=== PATIENT | male | born 1995 | race Asian ===

== ENCOUNTER 2017-06-09 21:48 | Emergency (ER) | payer OTHER ==
--- NOTE | 2017-06-09 22:36 | EDPHY ---
H & P Stated Complaint: N/v, headache HPI/ROS: HPI CHIEF COMPLAINT: Headache, intermittent nausea with 2 episodes of vomiting. HISTORY OF PRESENT ILLNESS: Patient very pleasant 21-year-old male he is a [employer] student, he denies having any significant medical history presents emergency room with a headache. He describes the headache as throbbing in nature bitemporal. He denies any visual disturbance. Denies photophobia phonophobia. Does report that he gets a headache usually once a month. It is usually when he wakes up in the morning he gets a bitemporal headache. He denies any neck pain or stiff neck. Denies being recently sick denies fever, denies meningeal signs. He does report over the last 5-6 days he has had this headache constantly every time he wakes up bilateral temporal region. He has had 2 episodes of vomiting with it. Nonprojectile. Decided come to the emergency room tonight as the headache has been present for 5-6 days which is unusual for him. Usually has it for few days once or twice a month. Patient reports to me he has had headaches for years. However has never had any imaging. Does not take any maintenance medication. Past Medical History: Denies significant medical history Past Surgical History: Denies significant surgical history Social History: Smokes tobacco daily half pack per day. Denies alcohol or illicit drugs. Family History: Noncontributory ROS REVIEW OF SYSTEMS: A comprehensive 10 point review of systems is otherwise negative aside from elements mentioned in the history of present illness. Exam Constitutional appears well nontoxic no acute distress, triage nursing summary reviewed, vital signs reviewed, awake/alert. Eyes normal conjunctivae and sclera, EOMI, PERRLA. HENT normal inspection, atraumatic, moist mucus membranes, no epistaxis, neck supple/ no meningismus, no raccoon eyes. Respiratory clear to auscultation bilaterally, normal breath sounds, no respiratory distress, no wheezing. Cardiovascular rate normal, regular rhythm, no murmur, no edema, distal pulses normal. Gastrointestinal soft, non-tender, no rebound, no guarding, normal bowel sounds, no distension, no pulsatile mass. Genitourinary no CVA tenderness. Musculoskeletal no midline vertebral tenderness, full range of motion, no calf swelling, no tenderness of extremities, no meningismus, good pulses, neurovascularly intact. Skin pink, warm, & dry, no rash, skin atraumatic. Neurologic nonfocal neurological exam, no meningeal signs, no stiff neck, awake, alert and oriented x 3, AAOx3, moves all 4 extremities equally, motor intact, sensory intact, CN II-XII intact, normal cerebellar, normal vision, normal speech. Psychiatric normal mood/affect. Heme/Lymph/Immune no lymphadenopathy. Differential Diagnosis: Includes but is not limited to and in no particular order: 10 to headache, cluster headache, migraine headache, intracranial bleed , meningitis, space-occupying intracranial lesion Medical Decision Making: Plan for this patient ibuprofen 800 mg for pain control, his neurological exam is unremarkable he has no meningeal signs. Will perform a CT scan head without contrast to make sure he does not have a space- occupying lesion. The patient has never had imaging of his head. Re-evaluation: CT head without contrast: Negative for acute intracranial occupying lesion. Called to me by Dr. Guillen [id number]: Re-evaluation at this time. Patient resting comfortably. Headache is resolved after [address] scan head does not show any acute evidence of bleed, tumor. He appears well. He has a normal neurological exam. There is no focal weakness. There is no meningeal signs. He otherwise appears well. Highly doubt meningitis. I do not feel the patient needs MR imaging or lumbar puncture. I do feel that he can go home. For set prescription provided. Return precautions discussed with him. Source: Patient - Personal History Current Tetanus Diphtheria and Acellular Pertussis (TDAP): Unsure - Medical/Surgical History Hx Asthma: No Hx Chronic Respiratory Disease: No Hx Diabetes: No Hx Cardiac Disease: No Hx Renal Disease: No Hx Cirrhosis: No Hx Alcoholism: No Hx HIV/AIDS: No Hx Splenectomy or Spleen Trauma: No Other PMH: denies - Social History Smoking Status: Light smoker Constitutional: Initial Vital Signs Temperature (C) 37.0 C 06/09/17 21:59 Heart Rate 67 06/09/17 21:59 Respiratory Rate 18 06/09/17 21:59 Blood Pressure 117/45 L 06/09/17 21:59 O2 Sat (%) 97 06/09/17 21:59 O2 Delivery Mode Room Air Allergies/Adverse Reactions: No Known Allergies Allergy (Unverified 06/09/17 21:58) Home Medications: Medication Instructions Recorded Acet/Caffeine/Buta Fioricet 1 each PO Q6 #20 tab 06/09/17 [Fioricet] Medical Decision Making - Diagnostics Imaging Results: Imaging Impressions Head CT 06/09/17 22:43 Impression: Normal brain. No intracranial hemorrhage or mass. Findings discussed with Emergency Department physician, Reyes Strange MD at 06/09/2017 23:05. - Data Points Medications Given: Discontinued Medications Ibuprofen (Motrin) 800 mg PO EDNOW ONE Stop: 06/09/17 22:44 Last Admin: 06/09/17 22:51 Dose: 800 mg Departure - Departure Disposition: Home, Routine, Self-Care Clinical Impression: Headache Qualifiers: Headache type: tension-type Headache chronicity pattern: acute headache Intractability: intractable Qualified Code(s): G44.201 - Tension-type headache, unspecified, intractable Condition: Good Instructions: Acute Headache (ED) Additional Instructions: 1. Drink lots of fluids stay well-hydrated. 2. Refrain from smoking. 3. Fioricet as prescribed for headache. 4. Return to the emergency room if you have worsening headache, vomiting, fever worsening of condition. Referrals: NONE *PRIMARY CARE P,. [Primary Care Provider] - As per Instructions Prescriptions: Acet/Caffeine/Buta Fioricet [Fioricet] 1 each PO Q6 #20 tab
[2017-06-09] MEDS ORDERED: IBUPROFEN 800 MG TAB PO ONE (22:43)
[2017-06-10 00:21] VITALS: BP 118/70; PULSE 71; RESP 16; TEMP 98.1; O2SAT 94
== END 2017-06-10 00:22 | disposition home or self-care (01) ==
DX: G44.201 Tension-type headache, unspecified, intractable (principal); F17.200 Nicotine dependence, unspecified, uncomplicated